=== PATIENT | female | born 1955 | race Caucasian/White ===

== ENCOUNTER 2022-02-13 07:11 | Outpatient (CLI) | payer MEDICARE, MEDICAID ==
[2022-02-13] VITALS (7 sets, daily range): BP systolic 137–167; BP diastolic 54–90
[~2022-02-13] VITALS: Ht 162.6 cm; Wt 50.4 kg
[2022-02-13] MEDS ORDERED: regadenoson 0.4mg/5ml syringe IV ONE (08:45)
== END 2022-02-13 23:59 | disposition home or self-care (01) ==
LOC: RAD 07:11
PROVIDERS: ATTEND Internal Medicine Cardiovascular Disease
DX: R07.9 Chest pain, unspecified (principal); I47.1 Supraventricular tachycardia
CPT/HCPCS: 78452; 93017; A9500; J2785

== ENCOUNTER 2024-03-16 10:38 | Day surgery (SDC) | payer MEDICARE, MEDICAID ==
[2024-03-15 10:56] LABS: BASOPHILS % (AUTO) 0.5 % (0-1); EOSINOPHILS # (AUTO) 0.2 X10'3 (0-0.9); EOSINOPHILS % (AUTO) 2.3 % (0-6); HEMATOCRIT 43.9 % (35.0-45.0); HEMOGLOBIN 14.5 g/dl (12.0-16.0); LYMPHOCYTES # (AUTO) 2.6 X10'3 (1.1-4.8); MEAN CORPUSCULAR HEMOGLOBIN 29.6 PG (27.0-31.0); MEAN CORPUSCULAR HGB CONC 33.1 g/dL (33.0-36.5); MEAN CORPUSCULAR VOLUME 89.2 FL (78-98); MONOCYTES # (AUTO) 0.7 X10'3 (0-0.9); MONOCYTES % (AUTO) 7.6 % (2-12); NEUTROPHILS % (AUTO) 62.6 % (42-75); PLATELET COUNT 282 X10'3 (140-440); RED BLOOD COUNT 4.92 X10'6 (4.20-5.60); WHITE BLOOD COUNT 9.6 X10'3 (4.5-11.0)
[2024-03-15 11:08] LABS: ALBUMIN 4.2 G/DL (3.4-5.0); ANION GAP 9 (8-16); BLOOD UREA NITROGEN 23 MG/DL (7-18); BUN/CREATININE RATIO 17.4 (10.0-20.0); CALCIUM 9.6 MG/DL (8.5-10.1); CHLORIDE 105 MMOL/L (99-107); CREATININE 1.32 MG/DL (0.40-0.90); GLUCOSE 102 MG/DL (70-104); POTASSIUM 4.2 MMOL/L (3.5-5.1); SODIUM 142 MMOL/L (135-145); eGFR 40 ML/MIN
[2024-03-15 11:09] LABS: APTT 26 SECONDS (22-32); PROTHROMBIN TIME 10.8 SECONDS (9.0-12.0)
[2024-03-16] VITALS (10 sets, daily range): BP systolic 135–165; BP diastolic 55–143; PULSE 47–70; RESP 10–12; TEMP 98.4; O2SAT 96–98
[~2024-03-16] VITALS: Ht 162.6 cm; Wt 52.1 kg
[2024-03-16] MEDS: normal saline 1,000 ML IV SCH (10:55)
[2024-03-16] MEDS ORDERED: METO-395 PO (11:06)
[2024-03-16] MEDS ORDERED: ASPI-1265 PO (11:06)
[2024-03-16] MEDS ORDERED: CLOP-32 PO (11:06)
[2024-03-16] MEDS ORDERED: HYDR50TA4 PO (11:06)
[2024-03-16] MEDS ORDERED: GUAI120L55 PO (11:06)
[2024-03-16] MEDS ORDERED: CHOL500050 PO (11:06)
[2024-03-16] MEDS ORDERED: ALBU18HF2 INH (11:06)
[2024-03-16] MEDS ORDERED: ACET-38 PO (11:06)
[2024-03-16] MEDS ORDERED: ROSU20TA73 PO (11:06)
[2024-03-16] MEDS ORDERED: iohexol 350 MG/ML 50ML vial IV ONE (12:00)
[2024-03-16] MEDS ORDERED: midazolam 1 mg/ML 2ml injection ONE ×2 (12:00→12:46)
[2024-03-16] MEDS ORDERED: fentaNYL/PF 50MCG/1 ML 2ML syringe ONE (12:00)
[2024-03-16] MEDS ORDERED: verapamil 2.5 mg/ml inj IV ONE (12:00)
[2024-03-16] MEDS ORDERED: LIDOcaine 1% (10mg/ml) 2ml vial ONE (12:00)
[2024-03-16] MEDS ORDERED: iohexol 350MG/ML 100ml bottle IV ONE ×2 (12:01→13:16)
[2024-03-16] MEDS ORDERED: nitroGLYCERIN 500mcg/5mL D5W 5 ML IV ONE (12:01)
[2024-03-16] MEDS ORDERED: heparin 1,000unit/ml 10ml vial 10 ML ONE (12:01)
[2024-03-16] MEDS: acetylcysteine 200 MG/ml 4ml vial PO PRN (12:06)
[2024-03-16] MEDS: LORazepam 0.5 MG tablet PO PRN (12:06)
[2024-03-16] MEDS: diphenhydrAMINE 25mg capsule PO PRN (12:06)
[2024-03-16] MEDS: sodium bicarbonate 1meq/ml syr 150 ML in dextrose 5%-water 1,000 ML IV SCH (12:10)
[2024-03-16] MEDS ORDERED: LIDOcaine 1% 30ml preserv. free vial ONE (12:46)
[2024-03-16 13:38] LABS: ISTAT HGB ART 12.6 g/dl (12.0-16.0); ISTAT Hct ART 37 %PCV (35-45); ISTAT O2 SATURATION ARTERIAL 99 % (95-98); ISTAT SOURCE ART
[2024-03-16] MEDS ORDERED: normal saline 1000ml 1,000 ML IV ONE (14:10)
[2024-03-16] MEDS ORDERED: HYDROcodone/acetaminophen 5mg/325mg tablet PO PRN (14:10)
[2024-03-16] MEDS: HYDROcodone/acetaminophen 10/325mg tab PO PRN (14:11)
== END 2024-03-16 18:15 | disposition home or self-care (01) ==
LOC: SSTAY O 10:38
PROVIDERS: ATTEND Internal Medicine Cardiovascular Disease
DX: R94.39 Abnormal result of other cardiovascular function study (principal); I25.10 Atherosclerotic heart disease of native coronary artery without angina pectoris; I10 Essential (primary) hypertension; E11.9 Type 2 diabetes mellitus without complications; E78.5 Hyperlipidemia, unspecified; J44.9 Chronic obstructive pulmonary disease, unspecified; I25.2 Old myocardial infarction; Z86.73 Personal history of transient ischemic attack (TIA), and cerebral infarction without residual deficits; Z79.82 Long term (current) use of aspirin; Z79.899 Other long term (current) drug therapy; Z95.5 Presence of coronary angioplasty implant and graft; Z98.891 History of uterine scar from previous surgery; Z90.710 Acquired absence of both cervix and uterus; Z98.890 Other specified postprocedural states; Z88.1 Allergy status to other antibiotic agents; Z88.6 Allergy status to analgesic agent; Z88.8 Allergy status to other drugs, medicaments and biological substances
CPT/HCPCS: 36415; 76937; 80048; 82803; 85014; 85025; 85610; 85730; 93005; 93460; 99152; 99153; A6258; A6402; C1725; C1751; C1894; J1644; J2001; J2250; J3010; J3490; J7030; J7070; Q9967; Z7610

== ENCOUNTER 2024-07-13 08:58 | Day surgery (SDC) | payer MEDICARE, MEDICAID ==
[2024-07-13] VITALS (14 sets, daily range): BP systolic 115–156; BP diastolic 38–85; PULSE 51–71; RESP 10–18; TEMP 97.8; O2SAT 89–96
[~2024-07-13] VITALS: Ht 162.6 cm; Wt 53.1 kg
[~2024-07-13 08:58] MED LIST: ACET-38 PO; ALBU18HF2 INH; ASPI-1265 PO; CHOL500050 PO; CLOP-32 PO; GUAI120L55 PO; HYDR50TA4 PO; METO-395 PO; ROSU20TA73 PO; ceFAZolin 2gm in dextrose, iso 50 ML IV ONE
[2024-07-13] MEDS ORDERED: AMLO5TAB16 PO (09:32)
[2024-07-13] MEDS ORDERED: LISI40TA13 PO (09:32)
[2024-07-13] MEDS ORDERED: ISOS60TA71 PO (09:32)
[2024-07-13] MEDS ORDERED: NITR0.4T51 SL (09:33)
[2024-07-13 10:03] LABS: APTT 25 SECONDS (22-32); PROTHROMBIN TIME 10.2 SECONDS (9.0-12.0)
[2024-07-13] MEDS: normal saline 1000ml 1,000 ML IV SCH (10:41)
[2024-07-13] MEDS: LORazepam 0.5 MG tablet PO ONE (10:41)
[2024-07-13] MEDS ORDERED: midazolam 1 mg/ML 2ml injection ONE ×2 (11:10→12:33)
[2024-07-13] MEDS ORDERED: ceFAZolin 1000mg inj ONE (11:10)
[2024-07-13] MEDS ORDERED: fentaNYL/PF 50MCG/1 ML 2ML syringe ONE (11:10)
[2024-07-13] MEDS ORDERED: LIDOcaine 1% W/epiNEPHrine 1:100,000 20ml vial ONE ×2 (11:10→12:53)
[2024-07-13] MEDS ORDERED: proCHLORperazine 10 MG/2 ml inj ONE (12:51)
[2024-07-13] MEDS ORDERED: HYDROmorphone 1 mg/ml syringe ONE (13:03)
[2024-07-13] MEDS ORDERED: CEPH-585 PO (14:24)
[2024-07-13] MEDS ORDERED: HYDROcodone/acetaminophen 5mg/325mg tablet PO PRN (14:25)
[2024-07-13] MEDS: HYDROcodone/acetaminophen 10/325mg tab PO PRN (14:42)
[2024-07-13] MEDS ORDERED: vancomycin/NS 1 GM ADD-VANTAGE 250 ML IV ONE (15:00)
[2024-07-13] MEDS: VANCOMYCIN 1GM 200ML H20 (PEG) 200 ML IV ONE (15:13)
== END 2024-07-13 19:05 | disposition home or self-care (01) ==
LOC: SSTAY O 08:58
PROVIDERS: ATTEND Internal Medicine Cardiovascular Disease
DX: I49.5 Sick sinus syndrome (principal); R53.83 Other fatigue; R42 Dizziness and giddiness; I47.10 Supraventricular tachycardia, unspecified; I10 Essential (primary) hypertension; I25.10 Atherosclerotic heart disease of native coronary artery without angina pectoris; E11.9 Type 2 diabetes mellitus without complications; J44.9 Chronic obstructive pulmonary disease, unspecified; E78.5 Hyperlipidemia, unspecified; I25.2 Old myocardial infarction; Z86.73 Personal history of transient ischemic attack (TIA), and cerebral infarction without residual deficits; Z79.02 Long term (current) use of antithrombotics/antiplatelets; Z79.82 Long term (current) use of aspirin; Z79.899 Other long term (current) drug therapy; Z90.710 Acquired absence of both cervix and uterus; Z98.891 History of uterine scar from previous surgery; Z95.5 Presence of coronary angioplasty implant and graft; Z98.890 Other specified postprocedural states; Z88.1 Allergy status to other antibiotic agents; Z88.6 Allergy status to analgesic agent; Z88.8 Allergy status to other drugs, medicaments and biological substances
CPT/HCPCS: 33208; 36415; 71046; 85610; 85730; 93005; 99152; 99153; A6402; C1785; C1898; J0690; J0780; J1171; J2250; J3010; J3372; J3490; J7030; Z7610; A6449